=== PATIENT | female | born 1995 | race American Indian/Alaskan Native ===

== ENCOUNTER 2016-07-03 19:38 | Emergency (ER) | payer SELFPAY ==
[~2016-07-03] VITALS: Ht 167.6 cm; Wt 125.0 kg
[2016-07-03 19:54] VITALS: Ht 167.6 cm; Wt 125.0 kg
== END 2016-07-03 23:04 | disposition left against medical advice (07) ==
LOC: E/R 20:30
DX: Z53.21 Procedure and treatment not carried out due to patient leaving prior to being seen by health care provider (principal)